=== PATIENT | male | born 1995 | race Caucasian/White ===

== ENCOUNTER 2019-02-12 11:20 | Emergency (ER) | payer OTHER ==
[~2019-02-12] VITALS: Ht 182.9 cm; Wt 81.2 kg
[~2019-02-12 11:20] MED LIST: Bactrim Ds Tab1 EACH PO; CRUTCH3 USE; Cleocin HCl150 MG PO; Cleocin HCl300 MG PO; HYDACE5325 PO; IBUP400 PO; IBUP600 PO; ONDA4ODT MM; RXCODACET PO; RXONDA4ODT MM; SERT25 PO; Ultram50 MG PO
[2019-02-12] MEDS ORDERED: ZYRTEC10 M1 PO (11:53)
[2019-02-12] MEDS ORDERED: ALBU90OI INH (11:53)
== END 2019-02-12 12:41 | disposition home or self-care (01) ==
LOC: ER 11:20
DX: J30.2 Other seasonal allergic rhinitis (principal); Z88.0 Allergy status to penicillin; F17.200 Nicotine dependence, unspecified, uncomplicated
CPT/HCPCS: 99282

== ENCOUNTER 2019-04-07 12:41 | Emergency (ER) | payer OTHER ==
[~2019-04-07] VITALS: Ht 182.9 cm; Wt 81.7 kg
[~2019-04-07 12:41] MED LIST changes: +ALBU90OI INH; +ZYRTEC10 M1 PO
[2019-04-07] MEDS ORDERED: Seroquel50 MG PO (12:58)
== END 2019-04-07 13:42 | disposition home or self-care (01) ==
LOC: ER 12:41
DX: S92.424A Nondisplaced fracture of distal phalanx of right great toe, initial encounter for closed fracture (principal); F32.9 Major depressive disorder, single episode, unspecified; F17.210 Nicotine dependence, cigarettes, uncomplicated; Z79.899 Other long term (current) drug therapy; Z88.0 Allergy status to penicillin; W55.19XA Other contact with horse, initial encounter
CPT/HCPCS: 73630; 99283-25

== ENCOUNTER 2021-06-06 20:06 | Emergency (ER) | payer OTHER ==
[~2021-06-06] VITALS: Ht 180.3 cm; Wt 89.8 kg
[~2021-06-06 20:06] MED LIST changes: +Seroquel50 MG PO
== END 2021-06-06 22:09 | disposition home or self-care (01) ==
LOC: ER 20:06
DX: S61.412A Laceration without foreign body of left hand, initial encounter (principal); Z88.0 Allergy status to penicillin; F17.210 Nicotine dependence, cigarettes, uncomplicated; W26.8XXA Contact with other sharp object(s), not elsewhere classified, initial encounter
CPT/HCPCS: 12002; 73130; 99283-25

== ENCOUNTER → 2022-05-14 | Outpatient (CLI) | payer OTHER ==
[2022-05-14 11:19] LABS: BASOPHILS ABSOLUTE AUTO 0.06 K/mm3 (0.00-0.23); BASOPHILS PERCENT AUTO 1 % (0-2); EOSINOPHILS ABSOLUTE AUTO 0.34 K/mm3 (0.00-0.68); EOSINOPHILS PERCENT AUTO 5 % (0-6); Hematocrit 38.4 % (37.0-53.0); Hemoglobin 13.7 g/dL (13.5-17.5); IMMATURE GRAN ABSOLUTE AUTO 0.02 K/mm3 (0.00-0.10); IMMATURE GRAN PERCENT AUTO 0 % (0-1); LYMPHOCYTES ABSOLUTE AUTO 1.74 K/mm3 (0.84-5.20); LYMPHOCYTES PERCENT AUTO 26 % (21-46); MONOCYTES ABSOLUTE AUTO 0.46 K/mm3 (0.16-1.47); MONOCYTES PERCENT AUTO 7 % (4-13); Mean Corpuscular HGB 30.8 pg (26.0-34.0); Mean Corpuscular HGB Conc 35.7 g/dL (31.5-36.5); Mean Corpuscular Volume 86 fL (80-100); Mean Platelet Volume 9.6 fL (9.1-12.4); NEUTROPHILS ABSOLUTE AUTO 4.19 K/mm3 (1.96-9.15); NEUTROPHILS PERCENT AUTO 61 % (41-73); Platelet Count 232 K/mm3 (150-400); RDW Coefficient Variation 11.8 % (11.7-14.2); RDW Standard Deviation 37.2 fL (35.1-46.3); Red Blood Cell Count 4.45 M/mm3 (4.30-5.90); White Blood Cell Count 6.81 K/mm3 (4.00-11.30)
[2022-05-14 11:35] LABS: Albumin, Blood 3.9 g/dL (3.4-5.0); Albumin/Globulin Ratio 1.1 (0.8-1.8); Bilirubin, Total 0.3 mg/dL (0.1-1.0); Bun/Creatinine Ratio 14.1 (12.0-20.0); Calcium, Blood 8.7 mg/dL (8.5-10.1); Creatinine, Blood 0.92 mg/dL (0.60-1.20); Globulin, Blood 3.4 g/dL (2.2-4.0); Potassium, Blood 3.8 mmol/L (3.5-5.5); Total Protein, Blood 7.3 g/dL (6.4-8.2)
== END | disposition home or self-care (01) ==
LOC: LAB 11:13 → LAB SHORT 11:13
PROVIDERS: Chiropractor
DX: R07.81 Pleurodynia (principal)
CPT/HCPCS: 80053; 84484; 85025; 85379

== ENCOUNTER 2023-06-02 14:17 | Emergency (ER) | payer OTHER ==
[~2023-06-02] VITALS: Ht 182.9 cm; Wt 78.9 kg
[2023-06-02 14:27] VITALS: BP 119/80
[2023-06-02] MEDS ORDERED: NAPR500 PO (14:29)
[2023-06-02] MEDS ORDERED: Cephalexin500 M1 PO (14:30)
== END 2023-06-02 14:32 | disposition home or self-care (01) ==
LOC: ER 14:17
DX: H60.12 Cellulitis of left external ear (principal); Z88.0 Allergy status to penicillin; Z79.899 Other long term (current) drug therapy; F17.210 Nicotine dependence, cigarettes, uncomplicated
CPT/HCPCS: 99282

== ENCOUNTER 2023-07-04 15:41 | Emergency (ER) | payer OTHER ==
[~2023-07-04] VITALS: Ht 185.4 cm; Wt 81.7 kg
[~2023-07-04 15:41] MED LIST changes: +Cephalexin500 M1 PO; +NAPR500 PO
[2023-07-04 16:11] VITALS: BP 144/95
== END 2023-07-04 18:02 | disposition home or self-care (01) ==
LOC: ER 15:41
DX: U07.1 COVID-19 (principal); F17.210 Nicotine dependence, cigarettes, uncomplicated; Z88.0 Allergy status to penicillin
CPT/HCPCS: 96372; 99283-25; J1885

== ENCOUNTER 2025-02-13 15:07 | Inpatient (IN) | payer BC ==
[~2025-02-13] VITALS: Ht 170.2 cm; Wt 73.6 kg
[~2025-02-13 15:07] MED LIST changes: +NS 1,000 ML IV SCH
[2025-02-13] MEDS ORDERED: LORazepam 1 MG Tab PO ONE (19:15)
[2025-02-13] MEDS ORDERED: Ketorolac Tromethamine 15mg Vial IM ONE ×2 (19:15→20:25)
[2025-02-13 22:19] LABS: BASOPHILS ABSOLUTE AUTO 0.06 K/mm3 (0.00-0.23); BASOPHILS PERCENT AUTO 0 % (0-2); EOSINOPHILS PERCENT AUTO 1 % (0-6); Hematocrit 36.9 % (37.0-53.0); Hemoglobin 12.8 g/dL (13.5-17.5); IMMATURE GRAN ABSOLUTE AUTO 0.06 K/mm3 (0.00-0.10); IMMATURE GRAN PERCENT AUTO 0 % (0-1); LYMPHOCYTES ABSOLUTE AUTO 2.23 K/mm3 (0.84-5.20); LYMPHOCYTES PERCENT AUTO 13 % (21-46); MONOCYTES ABSOLUTE AUTO 1.97 K/mm3 (0.16-1.47); MONOCYTES PERCENT AUTO 11 % (4-13); Mean Corpuscular HGB 30.5 pg (26.0-34.0); Mean Corpuscular HGB Conc 34.7 g/dL (31.5-36.5); Mean Corpuscular Volume 88 fL (80-100); NEUTROPHILS PERCENT AUTO 74 % (41-73); Platelet Count 294 K/mm3 (150-400); RDW Coefficient Variation 11.6 % (11.7-14.2); RDW Standard Deviation 37.2 fL (35.1-46.3); Red Blood Cell Count 4.19 M/mm3 (4.30-5.90); White Blood Cell Count 17.22 K/mm3 (4.00-11.30)
[2025-02-13 22:38] LABS: Albumin, Blood 2.8 g/dL (3.4-5.0); Albumin/Globulin Ratio 0.6 (0.8-1.8); Bilirubin, Total 0.3 mg/dL (0.1-1.0); Bun/Creatinine Ratio 15.6 (12.0-20.0); Calcium, Blood 8.5 mg/dL (8.5-10.1); Creatinine, Blood 0.77 mg/dL (0.60-1.20); Globulin, Blood 4.7 g/dL (2.2-4.0); Potassium, Blood 3.5 mmol/L (3.5-5.5); Total Protein, Blood 7.5 g/dL (6.4-8.2)
[2025-02-13] MEDS ORDERED: NS 1,000 ML IV SCH (22:40)
[2025-02-13] MEDS ORDERED: CefTRIAXone Sodium 1,000 MG in NS 100 ML IV ONE (22:45)
[2025-02-13] MEDS ORDERED: OxyCODONE HCL 5 MG TAB PO PRN (23:45)
[2025-02-13] MEDS ORDERED: Ondansetron HCl 2 MG / ML 2ML Vial IV PRN (23:45)
[2025-02-13] MEDS ORDERED: Acetaminophen 325 MG TABLET PO PRN (23:55)
[2025-02-14] MEDS ORDERED: Hydroxyzine HCl50 MG PO (00:22)
[2025-02-14] MEDS ORDERED: DESV50 PO (00:23)
[2025-02-14] MEDS ORDERED: Ketorolac Tromethamine 15mg Vial IV PRN (00:50)
[2025-02-14] MEDS ORDERED: Vancomycin HCL 1,750 MG in NS 500 ML IV ONE (00:55)
[2025-02-14 01:32] VITALS: BP 119/75
[2025-02-14 04:52] VITALS: BP 120/82
[2025-02-14 06:17] LABS: BASOPHILS ABSOLUTE AUTO 0.06 K/mm3 (0.00-0.23); BASOPHILS PERCENT AUTO 1 % (0-2); EOSINOPHILS ABSOLUTE AUTO 0.17 K/mm3 (0.00-0.68); EOSINOPHILS PERCENT AUTO 1 % (0-6); Hemoglobin 11.9 g/dL (13.5-17.5); IMMATURE GRAN ABSOLUTE AUTO 0.07 K/mm3 (0.00-0.10); IMMATURE GRAN PERCENT AUTO 1 % (0-1); LYMPHOCYTES ABSOLUTE AUTO 1.99 K/mm3 (0.84-5.20); LYMPHOCYTES PERCENT AUTO 15 % (21-46); MONOCYTES ABSOLUTE AUTO 1.52 K/mm3 (0.16-1.47); MONOCYTES PERCENT AUTO 12 % (4-13); Mean Corpuscular HGB 30.4 pg (26.0-34.0); Mean Corpuscular Volume 89 fL (80-100); Mean Platelet Volume 8.8 fL (9.1-12.4); NEUTROPHILS ABSOLUTE AUTO 9.09 K/mm3 (1.96-9.15); NEUTROPHILS PERCENT AUTO 71 % (41-73); Platelet Count 249 K/mm3 (150-400); RDW Coefficient Variation 11.9 % (11.7-14.2); RDW Standard Deviation 38.6 fL (35.1-46.3); Red Blood Cell Count 3.92 M/mm3 (4.30-5.90)
[2025-02-14 06:50] LABS: Albumin, Blood 2.5 g/dL (3.4-5.0); Albumin/Globulin Ratio 0.6 (0.8-1.8); Bilirubin, Total 0.3 mg/dL (0.1-1.0); Bun/Creatinine Ratio 14.1 (12.0-20.0); Calcium, Blood 8.4 mg/dL (8.5-10.1); Creatinine, Blood 0.78 mg/dL (0.60-1.20); Globulin, Blood 4.4 g/dL (2.2-4.0); Potassium, Blood 3.8 mmol/L (3.5-5.5); Total Protein, Blood 6.9 g/dL (6.4-8.2)
[2025-02-14 07:12] VITALS: BP 109/59
[2025-02-14] MEDS ORDERED: Lactobacil 2-S.Thermo-Bifido 1 1 Cap PO SCH (09:00)
[2025-02-14] MEDS ORDERED: Vancomycin HCL 1,250 MG in NS 250 ML IV SCH ×2 (09:00→21:00)
[2025-02-14] MEDS ORDERED: Docusate Sodium 100 MG Cap PO SCH (09:00)
[2025-02-14] MEDS ORDERED: Venlafaxine HCl 75 MG CapCR PO SCH (10:35)
[2025-02-14] MEDS ORDERED: Nicotine Polacrilex 2 MG Gum PO PRN (11:00)
[2025-02-14] MEDS ORDERED: HydrOXYzine Pamoate 50 MG Cap PO SCH (11:00)
[2025-02-14] MEDS ORDERED: NS 250 ML IV PRN (12:30)
[2025-02-14 16:05] VITALS: BP 128/85
[2025-02-14 19:42] VITALS: BP 115/72
--- NOTE | 2025-02-14 19:43 | NUR ---
SHIFT SUMMARY- PT WAS ABLE TO GET OB TO THE [facility]. THE WOUND ON HIS LEG OPENED UP AND THE PT HAD A BIT OF A PANICK ABOUT THE BLOOD. DR MOORE WAS ROUNDING AT THE TIME AND EVALUATED THE WOUND AND INSTRUCTED THIS RN TO DRESS THE WOUND, CONSULT PLACED TO DR WILKINSON FOR ORTHO. DR WILKINSON CAME TO SEE THE PT AND RECOMENDED SURGERY TO OPEN AND WASH OUT THE WOUND; HOWEVER THE PT WAS NOT RECEPTIVE TO THAT AT THIS TIME. DR WILKINSON GAVE WOUND CARE ORDERS, THE WOUND WAS REDRESSED. AFTER IV ABX Tx THE PT WENT OUT IN A WHEELCHAIR WITH HIS FOR SOME TIME IN THE SUN. PT HAS AN ORDER FOR NICORETTE GUM IF NEEDED. PAIN SEEMS TO BE WELL MANAGED FOR TODAY, PT DENIED NEED FOR PAIN MEDICATION ON CARE ROUNDS T/O THE DAY. PT IN BED SLEEPING SOUNDLY AT THE TIME OF BEDSIDE REPORT, SPOUSE AT THE BEDSIDE. NO S&S OF DISTRESS NOTED.
[2025-02-14] MEDS ORDERED: CefTRIAXone Sodium 1,000 MG in NS 100 ML IV SCH (21:00)
[2025-02-15 05:15] VITALS: BP 115/70
[2025-02-15 05:25] LABS: BASOPHILS ABSOLUTE AUTO 0.07 K/mm3 (0.00-0.23); BASOPHILS PERCENT AUTO 1 % (0-2); EOSINOPHILS ABSOLUTE AUTO 0.43 K/mm3 (0.00-0.68); EOSINOPHILS PERCENT AUTO 5 % (0-6); Hematocrit 36.4 % (37.0-53.0); Hemoglobin 12.4 g/dL (13.5-17.5); IMMATURE GRAN ABSOLUTE AUTO 0.05 K/mm3 (0.00-0.10); IMMATURE GRAN PERCENT AUTO 1 % (0-1); LYMPHOCYTES PERCENT AUTO 26 % (21-46); MONOCYTES ABSOLUTE AUTO 1.18 K/mm3 (0.16-1.47); MONOCYTES PERCENT AUTO 13 % (4-13); Mean Corpuscular HGB 30.4 pg (26.0-34.0); Mean Corpuscular HGB Conc 34.1 g/dL (31.5-36.5); Mean Corpuscular Volume 89 fL (80-100); NEUTROPHILS ABSOLUTE AUTO 4.89 K/mm3 (1.96-9.15); NEUTROPHILS PERCENT AUTO 55 % (41-73); Platelet Count 271 K/mm3 (150-400); RDW Coefficient Variation 11.6 % (11.7-14.2); RDW Standard Deviation 37.7 fL (35.1-46.3); Red Blood Cell Count 4.08 M/mm3 (4.30-5.90); White Blood Cell Count 8.92 K/mm3 (4.00-11.30)
[2025-02-15 05:43] LABS: Bun/Creatinine Ratio 20.8 (12.0-20.0); Calcium, Blood 8.5 mg/dL (8.5-10.1); Creatinine, Blood 0.86 mg/dL (0.60-1.20); Potassium, Blood 4.6 mmol/L (3.5-5.5)
--- NOTE | 2025-02-15 06:19 | NUR ---
SHIFT SUMMARY; PATIENT SLEPT IN LONG INTERVALS, LLE DRESSING REMAINED CD&I ALL NIGHT. PATIENT EATING REGULAR DIET, HOSPITALIST CONTACTED TO DC Q6[facility].
[2025-02-15 07:26] VITALS: BP 111/64
--- NOTE | 2025-02-15 11:59 | NUR ---
CALLED DR MOORE- PRELIM RESULT ON THE CULTURE IS GROWING STREP A. SHE IS AWARE AND WILL REVIEW.
[2025-02-15] MEDS ORDERED: CefTRIAXone Sodium 1,000 MG in NS 100 ML IV SCH (12:37)
[2025-02-15 13:24] LABS: Vancomycin, Trough 18.4 ug/mL (5.0-10.0)
[2025-02-15] MEDS ORDERED: Vancomycin HCL 1,000 MG in NS 250 ML IV SCH (14:00)
[2025-02-15 17:53] VITALS: BP 117/71
[2025-02-15 19:03] VITALS: BP 112/67
--- NOTE | 2025-02-15 19:49 | NUR ---
SHIFT SUMMARY- PT HAS SLEPT T/O THE DAY. HE STATES THE PAIN IS WELL MANAGED. PT HAD HIS DRESSING CHANGED TODAY. IV ABX WERE ADJUSTED AND THE PT STARTED ON ROCEPHIN. PT HAS AN ANIPHYLACTIC REACTION TO PENICILLIN HOWEVER RECIEVED A DOSE IN ED WITH NO ISSUE. PT STARTED IT TODAY WITH NO SIDE EFFECTS, PER PHARMACY ALLERGY LIST SHOULD BE UPDATED TO INCLUDE ROCEPHIN OK. PT SPOUSE IS ALSO AWARE. PT IN BED, CALL LIGHT IN REACH BEDSIDE REPORT COMPLETED. PT IS EATING FOOD HIS SPOUSE BROUGHT HIM NOW. NIGHT RN AWARE.
[2025-02-16 04:21] VITALS: BP 117/79
--- NOTE | 2025-02-16 05:13 | NUR ---
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 ALERT AND ORIENTED X4. PATIENT APPEARS TO BE LETHARGIC ALTHOUGH EASY TO WAKE. VITAL SIGNS STABLE. AT BEDSIDE THROUGHOUT THE NIGHT FOR COMFORT. RESTING QUIETLY WITH FEW INTERUPTIONS. BED RAILS UP X2. CALL LIGHT WITHIN REACH. BED IN LOWEST POSITION FOR SAFETY. WILL CONTINUE TO MONITOR.
[2025-02-16 05:15] LABS: BASOPHILS ABSOLUTE AUTO 0.06 K/mm3 (0.00-0.23); BASOPHILS PERCENT AUTO 1 % (0-2); EOSINOPHILS ABSOLUTE AUTO 0.46 K/mm3 (0.00-0.68); EOSINOPHILS PERCENT AUTO 5 % (0-6); Hematocrit 37.2 % (37.0-53.0); Hemoglobin 12.6 g/dL (13.5-17.5); IMMATURE GRAN ABSOLUTE AUTO 0.06 K/mm3 (0.00-0.10); IMMATURE GRAN PERCENT AUTO 1 % (0-1); LYMPHOCYTES ABSOLUTE AUTO 2.38 K/mm3 (0.84-5.20); LYMPHOCYTES PERCENT AUTO 28 % (21-46); MONOCYTES ABSOLUTE AUTO 0.87 K/mm3 (0.16-1.47); MONOCYTES PERCENT AUTO 10 % (4-13); Mean Corpuscular HGB 30.1 pg (26.0-34.0); Mean Corpuscular HGB Conc 33.9 g/dL (31.5-36.5); Mean Corpuscular Volume 89 fL (80-100); Mean Platelet Volume 8.8 fL (9.1-12.4); NEUTROPHILS ABSOLUTE AUTO 4.62 K/mm3 (1.96-9.15); NEUTROPHILS PERCENT AUTO 55 % (41-73); Platelet Count 295 K/mm3 (150-400); RDW Coefficient Variation 11.6 % (11.7-14.2); RDW Standard Deviation 37.2 fL (35.1-46.3); Red Blood Cell Count 4.19 M/mm3 (4.30-5.90); White Blood Cell Count 8.45 K/mm3 (4.00-11.30)
--- NOTE | 2025-02-16 05:29 | NUR ---
NURSE STUDENT PRECEPTOR NOTE I HAVE WORKED ALONG SIDE OF/WITH STUDENT AND HAVE READ AND AGREE WITH HER DOCUMENTATION
[2025-02-16 07:37] VITALS: BP 117/71
[2025-02-16] MEDS ORDERED: VISBIOME 112.51 EACH PO (11:24)
[2025-02-16] MEDS ORDERED: CEFTRIAXON1 GM/50 M1 IV (11:24)
--- NOTE | 2025-02-16 13:51 | NUR ---
DISCHARGE NOTE PT DISCHARGED TO HOME, LEFT AT 1330. PICKED UP BY HIS . PG IN PLACE FOR THE [facility]. PT PROVIDED NOTE TO DISMISS FROM WORK. DISCHARGE EDUCATION AND INFORMATION PROVIDED TO THE PT. PERSONAL BELONGINGS RETURNED. WOUND CARE SUPPLIES PROVIDED.
== END 2025-02-16 13:32 | disposition home or self-care (01) | DRG 872 ==
LOC: ER 15:07 → MEDS 23:52 → ER 02-14 01:13 → MEDS 02-14 01:21
PROVIDERS: Internal Medicine; Physician Assistant; ADMIT Student in an Organized Health Care Education/Training Program
PROC: 0H9LXZZ Drainage of Left Lower Leg Skin, External Approach (ICD-10-PCS; principal; 2025-02-13)
PROC: 3E03329 Introduction of Other Anti-infective into Peripheral Vein, Percutaneous Approach (ICD-10-PCS; 2025-02-13)
DX: A40.0 Sepsis due to streptococcus, group A (principal); L03.116 Cellulitis of left lower limb; L02.416 Cutaneous abscess of left lower limb; F41.9 Anxiety disorder, unspecified; S80.862A Insect bite (nonvenomous), left lower leg, initial encounter; W57.XXXA Bitten or stung by nonvenomous insect and other nonvenomous arthropods, initial encounter; F17.200 Nicotine dependence, unspecified, uncomplicated; Z88.0 Allergy status to penicillin
CPT/HCPCS: 10061; 36415; 73590; 73701; 80048; 80053; 80202; 82947; 83605; 83735; 85025; 87040; 87070; 87075; 87147; 87205; 96365-59; 96372-59; 99284-25; A9270; J0696; J1885; J3370; J7030; J7040; J7050; Q9967

== ENCOUNTER 2025-02-17 02:19 | Day surgery (SDC) | payer BC ==
[~2025-02-17 02:19] MED LIST changes: +CEFTRIAXON1 GM/50 M1 IV; +DESV50 PO; +Hydroxyzine HCl50 MG PO; -NS 1,000 ML IV SCH; +VISBIOME 112.51 EACH PO
[2025-02-17] MEDS ORDERED: CefTRIAXone Sodium 1,000 MG in NS 100 ML IV SCH (06:00)
[2025-02-17 17:07] VITALS: BP 111/70
== END 2025-02-17 17:29 | disposition home or self-care (01) ==
LOC: ATC 02:19
DX: L02.416 Cutaneous abscess of left lower limb (principal); F32.9 Major depressive disorder, single episode, unspecified; F17.210 Nicotine dependence, cigarettes, uncomplicated; Z88.0 Allergy status to penicillin
CPT/HCPCS: 96365; J0696

== ENCOUNTER 2025-02-18 04:37 | Day surgery (SDC) | payer BC ==
[2025-02-18] MEDS ORDERED: CefTRIAXone Sodium 1,000 MG in NS 100 ML IV SCH (06:00)
[2025-02-18 16:52] VITALS: BP 133/80
== END 2025-02-18 17:12 | disposition home or self-care (01) ==
LOC: ATC 04:37
DX: L02.416 Cutaneous abscess of left lower limb (principal); F17.210 Nicotine dependence, cigarettes, uncomplicated; Z88.0 Allergy status to penicillin; Z79.899 Other long term (current) drug therapy
CPT/HCPCS: 96365; J0696

== ENCOUNTER 2025-02-19 00:26 | Day surgery (SDC) | payer BC ==
[2025-02-19] MEDS ORDERED: CefTRIAXone Sodium 1,000 MG in NS 100 ML IV SCH (06:00)
[2025-02-19 16:58] VITALS: BP 119/80
== END 2025-02-19 17:18 | disposition home or self-care (01) ==
LOC: ATC 00:26
DX: L02.416 Cutaneous abscess of left lower limb (principal); L03.116 Cellulitis of left lower limb; F17.210 Nicotine dependence, cigarettes, uncomplicated; Z88.0 Allergy status to penicillin
CPT/HCPCS: 96365; J0696

== ENCOUNTER 2025-02-20 04:18 | Day surgery (SDC) | payer BC ==
[2025-02-20] MEDS ORDERED: CefTRIAXone Sodium 1,000 MG in NS 100 ML IV SCH (06:00)
[2025-02-20 16:59] VITALS: BP 118/80
== END 2025-02-20 17:22 | disposition home or self-care (01) ==
LOC: ATC 04:18
DX: L02.416 Cutaneous abscess of left lower limb (principal); F17.210 Nicotine dependence, cigarettes, uncomplicated; Z88.0 Allergy status to penicillin; Z79.899 Other long term (current) drug therapy
CPT/HCPCS: 96365; J0696

== ENCOUNTER 2025-02-21 02:39 | Day surgery (SDC) | payer BC ==
[2025-02-21] MEDS ORDERED: CefTRIAXone Sodium 1,000 MG in NS 100 ML IV SCH (06:00)
[2025-02-21 17:33] VITALS: BP 122/68
== END 2025-02-21 17:54 | disposition home or self-care (01) ==
LOC: ATC 02:39
DX: L02.416 Cutaneous abscess of left lower limb (principal); L03.116 Cellulitis of left lower limb; F17.210 Nicotine dependence, cigarettes, uncomplicated; Z88.0 Allergy status to penicillin
CPT/HCPCS: 96365; J0696

== ENCOUNTER 2025-02-22 02:31 | Day surgery (SDC) | payer BC ==
[2025-02-22] MEDS ORDERED: CefTRIAXone Sodium 1,000 MG in NS 100 ML IV SCH (06:00)
[2025-02-22 16:46] VITALS: BP 122/70
== END 2025-02-22 17:07 | disposition home or self-care (01) ==
LOC: ATC 02:31
DX: L02.416 Cutaneous abscess of left lower limb (principal); F17.210 Nicotine dependence, cigarettes, uncomplicated; Z79.899 Other long term (current) drug therapy; Z88.0 Allergy status to penicillin
CPT/HCPCS: 96365; J0696

== ENCOUNTER 2025-02-23 02:17 | Day surgery (SDC) | payer BC ==
[2025-02-23] MEDS ORDERED: CefTRIAXone Sodium 1,000 MG in NS 100 ML IV SCH (06:00)
[2025-02-23 17:14] VITALS: BP 132/74
== END 2025-02-23 17:33 | disposition home or self-care (01) ==
LOC: ATC 02:17
DX: L02.416 Cutaneous abscess of left lower limb (principal); F17.210 Nicotine dependence, cigarettes, uncomplicated; Z88.0 Allergy status to penicillin; Z79.899 Other long term (current) drug therapy
CPT/HCPCS: 96365; J0696

== ENCOUNTER 2025-02-24 03:51 | Day surgery (SDC) | payer BC ==
[~2025-02-24 03:51] MED LIST changes: +CefTRIAXone Sodium 1,000 MG in NS 100 ML IV SCH
[2025-02-24 16:59] VITALS: BP 129/74
== END 2025-02-24 17:22 | disposition home or self-care (01) ==
LOC: ATC 03:51
DX: L02.416 Cutaneous abscess of left lower limb (principal); F17.210 Nicotine dependence, cigarettes, uncomplicated; Z88.0 Allergy status to penicillin; Z79.899 Other long term (current) drug therapy
CPT/HCPCS: 96365; J0696